=== PATIENT | male | born 1960 | race Caucasian/White ===

== ENCOUNTER 2023-09-23 08:55 | Outpatient (CLI) | payer BC ==
[2023-09-23] MEDS ORDERED: Iopamidol 300 61% 100 ML VIAL FS ONE (12:33)
== END 2023-09-23 08:56 | disposition home or self-care (01) ==
LOC: CSHCT 08:55
PROVIDERS: ATTEND Internal Medicine Gastroenterology
DX: R10.32 Left lower quadrant pain (principal); R19.4 Change in bowel habit; K57.30 Diverticulosis of large intestine without perforation or abscess without bleeding; K63.9 Disease of intestine, unspecified
CPT/HCPCS: 74177; 82565; Q9967